=== PATIENT | male | born 1945 | race Caucasian/White ===

== ENCOUNTER 2019-08-02 21:39 | Emergency (ER) | payer MEDICARE ==
[2019-08-02 21:58] LABS: #Basophils 0.1 thou/uL (0.0-0.2); #Eosinphils 0.1 thou/uL (0.0-0.7); #Lymphocytes 1.5 thou/uL (1.20-3.40); #Monocytes 0.6 thou/uL (0.11-0.59); #Neutrophils 5.5 thou/uL (1.40-6.50); %Basophils 0.8 % (0.0-1.0); %Eosinophils 1.8 % (0.0-10.0); %Lymphocytes 18.8 % (21.0-51.0); %Monocytes 7.7 % (0.0-10.0); %Neutrophils 70.9 % (42.0-75.0); Hemoglobin 15.6 g/dL (14.0-18.0); Mean Corpuscular HGB CONC 30.5 g/dL (32.0-36.0); Mean Corpuscular Hemoglobin 28.5 pg (27.0-31.0); Mean Corpuscular Volume 93.3 fL (78.0-98.0); Mean Platelet Volume 8.4 fL (7.4-10.4); Platelet Count 213 thou/uL (130-400); RBC Distribution Width 12.8 % (11.5-14.5); Red Blood Cell (RBC) Count 5.48 mill/uL (4.70-6.10); White Blood Cell (WBC) Count 7.7 thou/uL (4.8-10.8)
[2019-08-02 22:21] LABS: ALT (SGPT) 19 U/L (8-55); AST (SGOT) 13 U/L (5-34); Albumin 3.5 g/dL (3.4-4.8); Alkaline Phosphatase 73 U/L (40-110); Anion Gap 13 mmol/L (10-20); BUN (Urea Nitrogen) 35 mg/dL (8.4-25.7); Bilirubin, Total 0.9 mg/dL (0.2-1.2); CK (CPK) 20 U/L (30-200); Calc. Creatinine Clearance 0 mL/min (70-130); Calcium 8.7 mg/dL (7.8-10.44); Carbon Dioxide 28 mmol/L (23-31); Chloride 103 mmol/L (98-107); Estimated GFR-MDRD 55; Globulin 2.9 g/dL (2.4-3.5); Glucose 157 mg/dL (83-110); Protein, Total 6.4 g/dL (5.8-8.1); Sodium 140 mmol/L (136-145)
[2019-08-02 22:42] LABS: CKMB 0.7 ng/mL (0-6.6)
--- NOTE | 2019-08-03 07:34 | RAD ---
SINGLE VIEW CHEST: Date: 08/02/2019 COMPARISON: None. HISTORY: Chest pain since this afternoon. FINDINGS: Single view of the chest shows a normal sized cardiomediastinal silhouette. Increased interstitial antonieta ng markings are present. There is obscurity of the medial aspect of the left hemidiaphragm which coul d represent atelectasis or infiltrate in the left lung base. Degenerative changes are seen in the spi ne. IMPRESSION: Left basilar atelectasis versus infiltrate. POS: [facility]
--- NOTE | 2019-08-05 14:28 | EKG ---
Test Reason : Blood Pressure : / mmHG Vent. Rate : 085 BPM Atrial Rate : 085 BPM P-R Int : 164 ms QRS Dur : 126 ms QT Int : 418 ms P-R-T Axes : 051 -85 086 degrees QTc Int : 497 ms Normal sinus rhythm with sinus arrhythmia Possible Left atrial enlargement Right bundle branch block Left anterior fascicular block Bifascicular block Possible Inferior infarct , age undetermined Anterior infarct , age undetermined T wave abnormality, consider lateral ischemia Abnormal ECG Confirmed by NUVIA DOVE DO ([id number]), department editor MINGO RANDOLPH ([id number]) on 08/05/2019 2:27:54 PM Referred By: Confirmed By:NUVIA DOVE DO
== END 2019-08-03 00:08 | disposition short-term general hospital (02) ==
LOC: ERS 21:39
DX: R07.2 Precordial pain (principal); I49.9 Cardiac arrhythmia, unspecified; R06.02 Shortness of breath; R05 Cough; I25.2 Old myocardial infarction; F17.210 Nicotine dependence, cigarettes, uncomplicated; Z79.82 Long term (current) use of aspirin; Z79.84 Long term (current) use of oral hypoglycemic drugs; Z79.899 Other long term (current) drug therapy
CPT/HCPCS: 36415; 71045; 80053; 82550; 82553; 83880; 84484; 85025; 93005

== ENCOUNTER 2019-09-17 04:24 | Inpatient (IN) | payer MEDICARE, OTHER ==
[2019-09-17] MEDS ORDERED: Nitroglycerin 0.4 MG TAB 1 EACH ONE (04:35)
[2019-09-17] MEDS ORDERED: Albuterol Sulfate 2.5 mg/3 ml Neb ONE ×2 (04:38→05:10)
[2019-09-17] MEDS ORDERED: Lorazepam 2 MG/ML VIAL ONE (04:42)
[2019-09-17] MEDS ORDERED: Furosemide 40 MG/4 ML VIAL ONE (04:50)
[2019-09-17 05:06] LABS: Actual Bicarbonate (HCO3a) 22.5 mEq/L (22-28); Analyzer IN Cardio ER; Base Excess (BEa) -5.3 mEq/L (-2.0 to +3.0); CO2 Tension 52.2 mmHg (35.0-45.0); Calcium, Ionized (arterial) 1.19 mmol/L (1.12-1.30); Carboxyhemoglobin (COHb) 0.7 gm% (0.0-3.0); Hemoglobin (Hb) 16.4 g/dL (14.0-18.0); O2 Tension (PaO2), arterial 104.7 mmHg (> 70.0); Potassium - ABG Lab 3.78 mmol/L (3.70-5.30)
[2019-09-17 05:07] LABS: Puncture Site RRA; pH, Arterial 7.25 (7.35-7.45)
[2019-09-17 05:08] LABS: #Basophils 0.1 thou/uL (0.0-0.2); #Eosinphils 0.4 thou/uL (0.0-0.7); #Lymphocytes 5.1 thou/uL (1.20-3.40); #Monocytes 0.7 thou/uL (0.11-0.59); #Neutrophils 6.4 thou/uL (1.40-6.50); %Eosinophils 2.9 % (0.0-10.0); %Lymphocytes 40.3 % (21.0-51.0); %Monocytes 5.3 % (0.0-10.0); %Neutrophils 50.4 % (42.0-75.0); Hemoglobin 16.1 g/dL (14.0-18.0); Mean Corpuscular HGB CONC 32.1 g/dL (32.0-36.0); Mean Corpuscular Hemoglobin 29.4 pg (27.0-31.0); Mean Corpuscular Volume 91.6 fL (78.0-98.0); Mean Platelet Volume 8.9 fL (7.4-10.4); Platelet Count 259 thou/uL (130-400); RBC Distribution Width 12.5 % (11.5-14.5); Red Blood Cell (RBC) Count 5.46 mill/uL (4.70-6.10); White Blood Cell (WBC) Count 12.7 thou/uL (4.8-10.8)
[2019-09-17 05:28] LABS: ALT (SGPT) 19 U/L (8-55); AST (SGOT) 17 U/L (5-34); Alkaline Phosphatase 86 U/L (40-110); Anion Gap 12 mmol/L (10-20); BUN (Urea Nitrogen) 20 mg/dL (8.4-25.7); Bilirubin, Total 0.8 mg/dL (0.2-1.2); Calc. Creatinine Clearance 0 mL/min (70-130); Calcium 9.1 mg/dL (7.8-10.44); Carbon Dioxide 26 mmol/L (23-31); Chloride 106 mmol/L (98-107); Estimated GFR-MDRD 73; Globulin 3.3 g/dL (2.4-3.5); Glucose 202 mg/dL (83-110); Potassium 4.3 mmol/L (3.5-5.1); Protein, Total 7.3 g/dL (5.8-8.1); Sodium 140 mmol/L (136-145)
[2019-09-17] MEDS ORDERED: Cefepime 2 GM VIAL ONE (05:31)
[2019-09-17] MEDS ORDERED: Vancomycin 1 GM/200 ML BAG ONE (05:31)
[2019-09-17 05:50] LABS: CKMB 1.7 ng/mL (0-6.6)
[2019-09-17] MEDS ORDERED: Aspirin Chewable 81 MG TAB ONE (05:57)
--- NOTE | 2019-09-17 06:04 | PDOC.FPRHP ---
- History of Present Illness Chief Complaint: SOB History of Present Illness: Patient is a 74 year old male with PMH CHF who presents to ED with worsening shortness of breath. He stated he had SOB for several days but it worsened today. He has been seeing a banquet pilot at [facility], recently underwent stent placement about 1 month ago and was placed on 2L of oxygen at home. Also noticed some increased swelling of his legs and was having to sit in his recliner to sleep. In ED his breathing worsened and was placed on bipap. History limited by this. Smokes 1/2ppd. Denies CP ED Course: In the ED, patient was noted to be in respiratory distress. Duoneb treatment was administered. The patient also recieved nitro 0.4mg, ASA 81mg and Lasix 40mg prior to admission. Cefepime 2g and vancomycin 1g were prescribed. - History PMHx: CHF, DM, PA (Apr 2019) PSHx: 4 vessel CABG, pt states stent placed about a month ago at [facility] FHx: Social: smokes 0.5 ppd. No alcohol or drug use. lives with Girlfriend - Review of Systems General: denies: fever/chills, night sweats Eyes: denies: eye pain, vision changes ENT: denies: nasal congestion, rhinorrhea Respiratory: reports: shortness of breath. denies: cough, congestion Cardiovascular: reports: edema, orthopnea. denies: chest pain, palpitation, paroxysmal nocturnal dyspnea Gastrointestinal: denies: nausea, vomiting Genitourinary: denies: dysuria, polyuria Skin: denies: rashes, lesions Musculoskeletal: denies: pain, tenderness Neurological: denies: numbness, syncope, weakness Psychological: denies: anxiety, depression - Vital signs BP: [134/96] HR: [102] RR: [25] Tmax: [96.7] Pox: [100]% on [bipap] Wt: [ 76.2kg] - Physical Exam Constitutional: awake, alert and oriented HEENT: normocephalic and atraumatic, PERRLA, no scleral icterus, grossly normal hearing Neck: supple, trachea midline Chest: no-tender to palpation, no lesions Heart: RRR, normal S1/S2, no murmurs/rubs/gallops, pulses present -Heart: 1+ pitting edema bilateral up to knee -Lungs: crackles heard bilaterally with some mild inspiratory wheezing Abdomen: soft, non-tender, bowel sounds present Musculoskeletal: normal structure, normal tone Neurological: no focal deficit, normal sensation Skin: no rash/lesions, good turgor Heme/Lymphatic: no unusual bruising or bleeding, no purpura Psychiatric: normal mood and affect, good judgment and insight FMR H&P: Results - Labs Result Diagrams: 09/17/19 04:45 09/17/19 04:45 Lab results: WBC 12.7 thou/uL (4.8-10.8) H 09/17/19 04:45 Hgb 16.1 g/dL (14.0-18.0) 09/17/19 04:45 Hct 50.0 % (42.0-52.0) 09/17/19 04:45 MCV 91.6 fL (78.0-98.0) 09/17/19 04:45 Plt Count 259 thou/uL (130-400) 09/17/19 04:45 Neutrophils % 50.4 % (42.0-75.0) 09/17/19 04:45 ABG pH 7.25 (7.35-7.45) L* 09/17/19 04:58 ABG pCO2 52.2 mmHg (35.0-45.0) H 09/17/19 04:58 ABG pO2 104.7 mmHg (> 70.0) H 09/17/19 04:58 Sodium 140 mmol/L (136-145) 09/17/19 04:45 Potassium 4.3 mmol/L (3.5-5.1) 09/17/19 04:45 Chloride 106 mmol/L (98-107) 09/17/19 04:45 Carbon Dioxide 26 mmol/L (23-31) 09/17/19 04:45 BUN 20 mg/dL (8.4-25.7) 09/17/19 04:45 Creatinine 0.99 mg/dL (0.7-1.3) 09/17/19 04:45 Glucose 202 mg/dL (83-110) H 09/17/19 04:45 Lactic Acid 2.9 mmol/L (0.5-2.2) H 09/17/19 04:50 Calcium 9.1 mg/dL (7.8-10.44) 09/17/19 04:45 Total Bilirubin 0.8 mg/dL (0.2-1.2) 09/17/19 04:45 AST 17 U/L (5-34) 09/17/19 04:45 ALT 19 U/L (8-55) 09/17/19 04:45 Alkaline Phosphatase 86 U/L (40-110) 09/17/19 04:45 CK-MB (CK-2) 1.7 ng/mL (0-6.6) 09/17/19 04:45 B-Natriuretic Peptide 1613.1 pg/mL (0-100) H 09/17/19 04:45 Serum Total Protein 7.3 g/dL (5.8-8.1) 09/17/19 04:45 Albumin 4.0 g/dL (3.4-4.8) 09/17/19 04:45 Laboratory Tests 09/17/19 09/17/19 09/17/19 04:45 04:45 04:50 Lactic Acid 2.9 H Troponin I 0.038 H B-Natriuretic Peptide 1613.1 H FMR H&P: A/P - Plan 1. Acute hypoxic respiratory failure 2/2 CHF exacerbation vs Pneumonia -on bipap, will give lasix, duonebs, strict I/Os - suspected CAP will start Rocephin, Azithro and Vanc 2. DM -sliding scale Code: Full PCP: [facility] call Prophylaxis: lovenox Dispo:admit to IMCU for respiratory support and evaluation, LOS >48hrs FMR H&P: Upper Level - Plan Date/Time: 09/17/19 0602 David Jefferson DO, have evaluated this patient and agree with findings/plan as outlined by internet application developer resident. Pertinent changes/additions are listed here. 74 yo m w sig heart dz hx presents for sob He reports that for the past couple of days he has become increasingly sob, chronically on 2L NC. He reports cough and fever. Denies chest pain, syncope, sick contacts, vomiting, diarrhea or dysuria. Taking his medications as prescribed and has all of his care at [facility]. PA in April with stent placement , dx of CHF in the past. Of note, pt is requiring bipap and dyspneic on exam so hx is limited. CXR reveals pulmonary vascular congestion, and right middle lobe opacity (official read pending), EKG revealing increased QRS complex voltage. On exam pt has increased work of breathing with crackles throughout lung hawkins , sinus tachy, no LE swelling. BNP 1613, WBC 12.7, troponin .038, and pH 7.25 w / increased A-a gradient on ABG. Give broad spectrum abx in ED, 1L of fluid, nitro, Lasix, nebs, asa. Acute hypoxic respiratory failure most likely 2/2 ADHF , consider pna as well. COVID was negative. Continue broad spectrum abx, bipap for now. Monitor strict IOs. Request records from [facility] as to the nature of this pts CHF. Further treatment based on clinical course/eval. Most likely this pt is suffering from ADHF, however if our interventions are not improving his status, consider underlying pna and dc bipap. Will continue nebs for probable hx of copd. Admit to imcu for respiratory failure, LOS>48hrs. Addendum - Attending - Attending Attestation Date/Time: 09/17/19 2051 I personally evaluated the patient and discussed the management with Dr. Willis/ Michael I agree with the History, Examination, Assessment and Plan documented above with any addition or exceptions noted below. see my dictation for details.
[2019-09-17] MEDS ORDERED: Ondansetron PF 4 MG/2 ML Vial IVP PRN (06:54)
[2019-09-17] MEDS ORDERED: Acetaminophen 650 MG Suppository PR PRN (06:54)
[2019-09-17] MEDS ORDERED: Acetaminophen 325 MG TAB PO PRN (06:54)
[2019-09-17] MEDS ORDERED: Ondansetron ODT 4 MG TAB PO PRN (06:54)
[2019-09-17] MEDS ORDERED: Dextrose 5% in Water 1,000 ML IV PRN (07:29)
[2019-09-17] MEDS ORDERED: Dextrose 50% Abboject 50 ML SYRINGE SLOW IVP PRN (07:29)
[2019-09-17] MEDS ORDERED: HumaLOG 300 UNITS/3 ML VIAL SC PRN (07:29)
[2019-09-17 08:18] LABS: Lactic Acid 2.3 mmol/L (0.5-2.2)
--- NOTE | 2019-09-17 08:19 | HP ---
TIME OF SERVICE: 0700 hours. CHIEF COMPLAINT: Shortness of breath. HISTORY OF PRESENT ILLNESS: I reviewed all documentations and discussed the care and management of this patient with Dr. Willis and Dr. Rodriguez. I agree with her history and physical, otherwise stated in the following attestation. In summary, Mr. Reid is a pleasant 74-year-old male with past medical history of heart failure of unknown specificity, diabetes, prior [place] and CAD, status post 4-vessel CABG. He also had a coronary artery stent placed about 1 month ago. He presents with a several-day history of progressively worsening shortness of breath. He called EMS. He is on 2 L of oxygen at baseline and upon arrival by EMS at his home, he was saturating in the mid 80s on 2 L. He responded to a non-rebreather therapy initially. The patient receives most of his care at [facility]. However, en route, he began to decompensate and was diverted to [facility]. In the ER, he reports shortness of breath and wheezing. Denies fevers, chills, cough, congestion, or chest pain. In the ER, he was started on BiPAP and received aspirin, vancomycin, cefepime, 1 L fluid bolus, Lasix IV push, lorazepam, albuterol nebs, DuoNebs, and nitroglycerin sublingual. Please see the resident note for past medical, social, surgical, and family history. PHYSICAL EXAMINATION: Focused physical examination, VITAL SIGNS: Blood pressure 125/85, pulse 109, respiratory rate 24, T-max 97.8, and pulse ox 99% on BiPAP. GENERAL: Alert and oriented to person, place, and time. Mild respiratory distress, but per reports, was improved. HEENT: Normocephalic, atraumatic. External ears and nose are grossly normal. CARDIOVASCULAR: Tachycardic, regular. No murmurs, rubs, or gallops. There is a sternotomy scar noted. PULMONARY: Clear to auscultation bilaterally, but the patient has poor air movement throughout. He has increased work of breathing, on BiPAP. He is speaking in 2- to 3-word sentences. EXTREMITIES: No pitting edema noted. PERTINENT LABORATORY FINDINGS: COVID-19 negative. Troponin 0.038. BNP 1613. Lactic acid 2.9. CMP was relatively unremarkable. Blood gas; pH 7.25, pCO2 of 52, PO2 of 104.7, and bicarb 22.58. White count 12.7. Chest x-ray was concerning for pulmonary vascular congestion and possible right middle lobe pneumonia. EKG showed sinus tachycardia without ST changes. Normal intervals. ASSESSMENT AND PLAN: Mr. Reid is a 74-year-old male who presented with a 2- to 3-day history of worsening shortness of breath. He was found to be hypoxic from his baseline at home and was started on BiPAP upon arrival to the ER. He appears to be responding to this and is much more comfortable. The patient agrees that he is breathing much easier now. 1. Acute hypoxic hypercapnic respiratory failure secondary to community-acquired lobar pneumonia versus congestive heart failure exacerbation versus chronic obstructive pulmonary disease exacerbation. We will continue IV antibiotics with vancomycin, Rocephin, and azithromycin. We will continue to treat with IV Lasix for possible congestive heart failure exacerbation. We will also treat him for chronic obstructive pulmonary disease exacerbation. We will schedule DuoNebs and IV steroids. Continue BiPAP in the IMCU. Pulmonology will evaluate the patient once he arrives to the floor. 2. Sepsis secondary to community-acquired pneumonia. Given the fact that he may also be in congestive heart failure exacerbation. We will hold off excessive fluid boluses at this time. Monitor his status. His blood pressure is holding steady at this time. He meets SIRS criteria with tachypnea, tachycardia, and elevated white count. We will check a procalcitonin level to further assess and evaluate. 3. Congestive heart failure, type unspecified. The patient has all his records at [facility]. We are attempting to obtain these at this time. Repeat echocardiogram. 4. See international account executive note for chronic medical problems. 5. Disposition: Inpatient IMCU greater than 2 midnights. Approximately 35 minutes of critical care time were spent on this patient by me. Job ID: [id number]
--- NOTE | 2019-09-17 08:22 | RAD ---
PORTABLE CHEST 1 VIEW: DATE: 09/17/2019. TIME: 4:15 AM. HISTORY: Shortness of breath. FINDINGS/IMPRESSION: Comparison is made with the exam of 08/02/2019. The heart is enlarged. There are patchy airspace opacities in the lower lung hawkins bilaterally, lef t greater than right. There is pulmonary vascular congestion. No pneumothoraces are seen. Small ef fusions cannot be excluded. POS: [facility]
[2019-09-17 08:35] LABS: Troponin I 0.051 ng/mL (< 0.028)
[2019-09-17 08:43] VITALS: BMI 23.4
[2019-09-17] MEDS: Enoxaparin Sodium 40 MG/0.4 ML SYRINGE SC SCH (11:28)
[2019-09-17] MEDS: Azithromycin 500 MG in Sodium Chloride 0.9% 250 ML 250 ML IVPB SCH (11:58)
[2019-09-17 14:47] LABS: Troponin I 0.042 ng/mL (< 0.028)
[2019-09-17] MEDS ORDERED: Sodium Chloride 0.9% 10 ML ONE (16:23)
[2019-09-17] MEDS: Vancomycin 1 GM in Premix Bag 1 BAG IVPB SCH (16:38)
[2019-09-18] MEDS: Vancomycin 1 GM in Premix Bag 1 BAG IVPB SCH (04:42)
[2019-09-18 04:56] LABS: #Eosinphils 0.2 thou/uL (0.0-0.7); #Lymphocytes 1.5 thou/uL (1.20-3.40); #Monocytes 0.5 thou/uL (0.11-0.59); #Neutrophils 4.8 thou/uL (1.40-6.50); %Basophils 0.3 % (0.0-1.0); %Eosinophils 2.9 % (0.0-10.0); %Lymphocytes 21.4 % (21.0-51.0); %Monocytes 7.5 % (0.0-10.0); %Neutrophils 67.8 % (42.0-75.0); Hemoglobin 14.3 g/dL (14.0-18.0); Mean Corpuscular HGB CONC 33.3 g/dL (32.0-36.0); Mean Corpuscular Volume 90.1 fL (78.0-98.0); Mean Platelet Volume 8.8 fL (7.4-10.4); Platelet Count 202 thou/uL (130-400); RBC Distribution Width 12.4 % (11.5-14.5); Red Blood Cell (RBC) Count 4.79 mill/uL (4.70-6.10)
[2019-09-18] MEDS ORDERED: Vancomycin HCl 1.25 GM in Sodium Chloride 0.9% 250 ML 250 ML IVPB SCH (05:00)
[2019-09-18 05:11] LABS: ALT (SGPT) 14 U/L (8-55); AST (SGOT) 13 U/L (5-34); Albumin 3.2 g/dL (3.4-4.8); Alkaline Phosphatase 67 U/L (40-110); Anion Gap 10 mmol/L (10-20); BUN (Urea Nitrogen) 21 mg/dL (8.4-25.7); Bilirubin, Total 0.7 mg/dL (0.2-1.2); Calc. Creatinine Clearance 76 mL/min (70-130); Calcium 8.3 mg/dL (7.8-10.44); Carbon Dioxide 27 mmol/L (23-31); Chloride 106 mmol/L (98-107); Estimated GFR-MDRD 85; Globulin 2.7 g/dL (2.4-3.5); Glucose 132 mg/dL (83-110); Potassium 3.5 mmol/L (3.5-5.1); Protein, Total 5.9 g/dL (5.8-8.1); Sodium 139 mmol/L (136-145)
--- NOTE | 2019-09-18 07:06 | PDOC.FM ---
- Subjective Subjective: Patient states his breathing feels a little better this morning. Did have increased O2 req overnight from 2 to 3L via N/C (normally on 2L O2 at home). Says breathing much improved after Duoneb treatment. He is currently receiving his ECHO. - Objective MAR Reviewed: Yes Vital Signs & Weight: Vital Signs (12 hours) Temp Pulse Resp BP Pulse Ox 09/18/19 05:42 18 97 09/18/19 04:40 97.9 F 92 16 108/66 95 09/17/19 20:29 97.9 F 98 16 96/51 L 96 Weight Weight 74.843 kg Most Recent Monitor Data Heart Rate from ECG 93 NIBP 98/65 NIBP BP-Mean 76 Respiration from ECG 22 SpO2 96 I&O: 09/17/19 09/18/19 09/19/19 06:59 06:59 06:59 Intake Total 1240 Output Total 1250 Balance -10 Result Diagrams: 09/18/19 04:02 09/18/19 04:02 Phys Exam - Physical Examination Constitutional: NAD HEENT: moist MMs, sclera anicteric Neck: no JVD, supple, full ROM Respiratory: no wheezing scattered crackles throughout Cardiovascular: RRR, no significant murmur Gastrointestinal: soft, non-tender Musculoskeletal: pulses present 1+ non pitting edema in BLE Neurological: normal sensation, moves all 4 limbs Psychiatric: normal affect, A&O x 3 Skin: no rash, normal turgor Dx/Plan (1) Acute hypoxemic respiratory failure Code(s): J96.01 - ACUTE RESPIRATORY FAILURE WITH HYPOXIA Status: Acute (2) Acute exacerbation of CHF (congestive heart failure) Code(s): I50.9 - HEART FAILURE, UNSPECIFIED Status: Acute Qualifiers: Heart failure type: unspecified Qualified Code(s): I50.9 - Heart failure, unspecified (3) COPD with acute exacerbation Code(s): J44.1 - CHRONIC OBSTRUCTIVE PULMONARY DISEASE W (ACUTE) EXACERBATION Status: Acute (4) Community acquired pneumonia Code(s): J18.9 - PNEUMONIA, UNSPECIFIED ORGANISM Status: Acute Qualifiers: Laterality: right Lung location: lower lobe of lung Qualified Code(s): J18.9 - Pneumonia, unspecified organism (5) CAD (coronary artery disease) Code(s): I25.10 - ATHSCL HEART DISEASE OF [place] CORONARY ARTERY W/O ANG PCTRS Status: Acute Qualifiers: Coronary Disease-Associated Artery/Lesion type: bypass graft [place] vs. transplanted heart: [place] heart Associated angina: with stable angina Qualified Code(s): I25.708 - Atherosclerosis of coronary artery bypass graft(s) , unspecified, with other forms of angina pectoris (6) Diabetes mellitus Code(s): E11.9 - TYPE 2 DIABETES MELLITUS WITHOUT COMPLICATIONS Status: Acute Qualifiers: Diabetes mellitus type: type 2 Diabetes mellitus shelter insulin use: without shelter use Diabetes mellitus complication status: with hyperglycemia Qualified Code(s): E11.65 - Type 2 diabetes mellitus with hyperglycemia - Plan Plan: Patient is a 74 yo male who prsents with SOB is admitted for acute hypoxic respiratory failure 2/2 multiple etiologies: Acute hypoxic respiratory failure 2/2 CHF exacerbation & CAP -on admission did require BIPAP, transitioned after 2 hours to N/C, currently requiring 3L -patient normally on 2L of O2 at home -CXR reveals pulmonary vascular congestion, and patchy opacity bilateral lower lobes (R>L) -BNP 1613 (up from BNP of 500 in July) -ABG: pH 7.25, PCO2 52.2, HCO3 22.5 -resume home Lasix, provide additional diuresis with IV Lasix -Duonebs -monitor strict I/Os -ECHO ordered & pending, pt reports hx of CHF in past -records request pending from [facility] Community Acquired Pneumonia -Rocephin, Azithro and Vanc -COVID negative COPD Exacerbation -plan as above -Prednisone 40 mg daily DM -sliding scale -home med rec pending CAD -[place] in April with stent placement, dx of CHF in the past. -EKG revealing increased QRS complex voltage, sinus tachycardia -Troponin 0.038 > 0.051 > 0.042 -home Nitro prn Diet: CC VTE: Lovenox Code: Full PCP: [facility] call Dispo: Stable, admit to telemetry for respiratory support and continued monitoring. Continue antibiotics and diuresis. Anticipate discharge in <48hrs. Addendum - Attending - Attending Attestation Date/Time: 09/18/19 7379 I personally evaluated the patient and discussed the management with Dr. Justice I agree with the History, Examination, Assessment and Plan documented above with any addition or exceptions noted below - Patient without complaints; states SOB is improved. Afebrile VSS. A/P: 1) HFrEF exacerbation - continue lasix; echo showes severely depressed EF; will d/w cardiology. Records form [facility] have not been received. 2) DM- stable; resume home meds. 3) COPD- continue nebs and steroids.
[2019-09-18] MEDS ORDERED: Furosemide 20 MG/2 ML VIAL SLOW IVP SCH (07:15)
[2019-09-18] MEDS ORDERED: Furosemide 40 MG/4 ML VIAL SLOW IVP SCH (07:25)
[2019-09-18] MEDS ORDERED: Furosemide 40 MG TAB PO SCH (07:30)
[2019-09-18] MEDS: predniSONE 20 MG TAB PO SCH (08:28)
[2019-09-18] MEDS: Azithromycin 500 MG in Sodium Chloride 0.9% 250 ML 250 ML IVPB SCH (08:29)
[2019-09-18] MEDS: Enoxaparin Sodium 40 MG/0.4 ML SYRINGE SC SCH (08:29)
[2019-09-18] MEDS: cefTRIAXone\\ROCEPHIN 2 GM in Sodium Chloride 0.9% 100 ML IVPB SCH (10:30)
[2019-09-18] MEDS: HumaLOG 300 UNITS/3 ML VIAL SC PRN ×2 (12:00→18:12)
[2019-09-18] MEDS ORDERED: Aspirin 81 mg Enteric Coated Tablet PO SCH (14:00)
[2019-09-18] MEDS ORDERED: Clopidogrel Bisulfate 75 MG TAB PO SCH (14:00)
[2019-09-18] MEDS ORDERED: Spironolactone 25 MG TAB PO SCH (14:45)
--- NOTE | 2019-09-18 15:18 | CON ---
DATE OF CONSULTATION: HISTORY OF PRESENT ILLNESS: The patient is a 74-year-old gentleman with a history of coronary artery disease and congestive heart failure, who presents with increasing dyspnea. The patient has a long history of coronary artery disease. He is status post coronary artery bypass surgery x4. The patient most recently underwent PTCA and stent placement at [facility] several months ago. The patient states he was subsequently admitted with congestive heart failure. He presents once again with increasing dyspnea. The patient denied having any chest discomfort. PAST MEDICAL HISTORY: 1. Coronary artery disease. 2. Cardiomyopathy. 3. Hypertension. 4. Dyslipidemia. 5. Diabetes mellitus. 6. COPD. PAST SURGICAL HISTORY: Coronary artery bypass graft surgery, also has a history of mediastinal wound exploration. SOCIAL HISTORY: Long history of tobacco abuse. FAMILY HISTORY: Family history of coronary artery disease. MEDICATIONS: 1. Aspirin 81 daily. 2. Plavix 75 daily. 3. Actos 30 daily. 4. Lisinopril 5 daily. 5. Metoprolol 50 b.i.d. 6. Lasix 20 daily. 7. Lipitor 40 at bedtime. 8. Chantix 1 mg p.o. b.i.d. REVIEW OF SYSTEMS: 10-point system otherwise unremarkable. PHYSICAL EXAMINATION: GENERAL: Elderly gentleman, in mild distress. VITAL SIGNS: Blood pressure was 93/54. NECK: Had no carotid bruits. LUNGS: Crackles in both bases. HEART: Regular rate and rhythm. Normal S1 and S2 with a 1/6 systolic murmur. ABDOMEN: Nondistended. EXTREMITIES: Show trace edema. Vascular radial pulse 2+. LABORATORY DATA: Sodium 139, potassium 3.5, chloride 106, bicarbonate 27, BUN 21, creatinine 0.87, glucose 132. White blood cell count is 7.0, hemoglobin 14.3, hematocrit 43.1, platelets are 202. EKG normal sinus rhythm, right bundle-branch block, Q wave suggestive of previous inferior infarct. IMPRESSION: 1. Congestive heart failure. 2. Severe ischemic cardiomyopathy. 3. History of coronary artery bypass surgery. 4. Percutaneous transluminal coronary angioplasty and stent placed. 5. Diabetes mellitus. 6. Dyslipidemia. 7. Tobacco abuse. This gentleman presents with congestive heart failure. The patient's blood pressure is low. I would continue the patient on his low-dose lisinopril. We will switch the patient from Toprol to Coreg. We will add Spironolactone. We will follow this patient with you through his hospitalization. Job ID: [id number] [facility] HOSPITALVinny
[2019-09-18] MEDS: Carvedilol 3.125 MG TAB PO SCH (16:17)
[2019-09-18] MEDS ORDERED: Non-Formulary Item 1 EACH (Varenicline Tartrate [Chantix] 1 MG) PO SCH (21:00)
[2019-09-18] MEDS ORDERED: Atorvastatin Calcium 40 MG TAB PO SCH (21:00)
[2019-09-18] MEDS ORDERED: Metoprolol Tartrate 50 MG TAB PO SCH (21:00)
[2019-09-18] MEDS: Lisinopril 2.5 MG TAB PO SCH (21:27)
[2019-09-18] MEDS: Varenicline Tartrate 0.5 MG TAB PO SCH (21:28)
--- NOTE | 2019-09-19 07:17 | PDOC.FM ---
- Subjective Subjective: Patient reports that he is feeling well this morning. His breathing has improved since yesterday. - Objective MAR Reviewed: Yes Vital Signs & Weight: Vital Signs (12 hours) Temp Pulse Resp BP Pulse Ox 09/19/19 04:03 93 L 09/19/19 04:00 98.4 F 88 18 100/58 L 96 09/18/19 21:27 98 09/18/19 19:58 97.8 F 98 16 113/56 L 93 L Weight Weight 73.936 kg Most Recent Monitor Data Heart Rate from ECG 93 NIBP 98/65 NIBP BP-Mean 76 Respiration from ECG 22 SpO2 96 I&O: 09/18/19 09/19/19 09/20/19 06:59 06:59 06:59 Intake Total 1240 720 Output Total 1250 725 Balance -10 -5 Result Diagrams: 09/18/19 04:02 09/18/19 04:02 Phys Exam - Physical Examination Constitutional: NAD HEENT: moist MMs, sclera anicteric Neck: no nodes, no JVD Respiratory: clear to auscultation bilateral decreased breath sounds in L Lung base Cardiovascular: RRR, no significant murmur Gastrointestinal: soft, non-tender, no distention, positive bowel sounds Musculoskeletal: no edema, pulses present Neurological: moves all 4 limbs Psychiatric: normal affect, A&O x 3 Skin: no rash, normal turgor Dx/Plan - Plan Plan: Patient is a 74 yo male who prsents with SOB is admitted for acute hypoxic respiratory failure 2/2 multiple etiologies: Acute hypoxic respiratory failure 2/2 CHF exacerbation & CAP -on admission did require BIPAP, transitioned after 2 hours to N/C, currently requiring 3L -patient normally on 2L of O2 at home -CXR reveals pulmonary vascular congestion, and patchy opacity bilateral lower lobes (R>L) -BNP 1613 (up from BNP of 500 in July) -ABG: pH 7.25, PCO2 52.2, HCO3 22.5 -resume home Lasix, provide additional diuresis with IV Lasix -Duonebs -monitor strict I/Os -ECHO ordered & pending, pt reports hx of CHF in past -records request pending from [facility] - Aldactone, lisinopril, Coreg Community Acquired Pneumonia -Rocephin, Azithro-consider switching to oral azithromycin and cefuroxime -COVID negative COPD Exacerbation -plan as above -Prednisone 40 mg daily DM -sliding scale -home med rec pending CAD -[place] in April with stent placement, dx of CHF in the past. -EKG revealing increased QRS complex voltage, sinus tachycardia -Troponin 0.038 > 0.051 > 0.042 -home Nitro prn Diet: CC VTE: Lovenox Code: Full PCP: [facility] call Dispo: Stable, admit to telemetry for respiratory support and continued monitoring. Continue antibiotics and diuresis. Anticipate discharge in <48hrs. Addendum - Attending - Attending Attestation Date/Time: 09/19/19 3467 I personally evaluated the patient and discussed the management with Dr. Brannon I agree with the History, Examination, Assessment and Plan documented above with any addition or exceptions noted below. Patient with significant ischemic cardiomyopathy with markedly reduced EF . Patient with Oxygen dependant COPD and states he wore life vest for 30 days. Appreciate Cardiology recommendations. This AM he appears improved since admission. Patient followed at [facility] s/p 4 v CABG and Stent placement on aldactone ACEI and Coreg.
[2019-09-19] MEDS ORDERED: Spironolactone 25 MG TAB PO SCH (08:00)
[2019-09-19] MEDS ORDERED: Aspirin Chewable 81 MG TAB PO SCH (09:00)
[2019-09-19] MEDS ORDERED: Clopidogrel Bisulfate 75 MG TAB PO SCH (09:00)
[2019-09-19] MEDS ORDERED: Furosemide 40 MG/4 ML VIAL SLOW IVP SCH (09:00)
[2019-09-19] MEDS: Carvedilol 3.125 MG TAB PO SCH ×2 (09:21→18:00)
[2019-09-19] MEDS: Lisinopril 2.5 MG TAB PO SCH ×2 (09:22→11:27)
[2019-09-19] MEDS: predniSONE 20 MG TAB PO SCH (09:22)
[2019-09-19] MEDS: Varenicline Tartrate 0.5 MG TAB PO SCH (09:25)
[2019-09-19] MEDS: Azithromycin 500 MG in Sodium Chloride 0.9% 250 ML 250 ML IVPB SCH (09:26)
[2019-09-19] MEDS: Enoxaparin Sodium 40 MG/0.4 ML SYRINGE SC SCH (09:26)
[2019-09-19] MEDS: cefTRIAXone\\ROCEPHIN 2 GM in Sodium Chloride 0.9% 100 ML IVPB SCH (11:03)
[2019-09-19] MEDS: HumaLOG 300 UNITS/3 ML VIAL SC PRN (11:33)
[2019-09-19 17:05] VITALS: BP 91/53; TEMP 97.8
--- NOTE | 2019-09-22 13:04 | DIS ---
DATE OF ADMISSION: 09/17/2019 DATE OF DISCHARGE: 09/19/2019 RESIDENT: Seth Brannon MD ADMITTING ATTENDING: Swapnil Ohara MD DISCHARGE ATTENDING: Juan Acuna MD CONSULTS: Cardiology. PROCEDURES: Echocardiogram showing ejection fraction of 15% to 20%, left atrial mild dilation, akinetic apex, moderate mitral regurgitation, mild tricuspid regurgitation, large pleural effusion, moderately increased left ventricular size, E/A flow reversal noted suggestive of diastolic dysfunction, aortic valve leaflets are somewhat thickened. Chest x-ray showing enlarged heart; patchy airspace opacities in the lower lung hawkins, left greater than right; and pulmonary vascular congestion. PRIMARY DIAGNOSIS: Acute hypoxic respiratory failure due to congestive heart failure exacerbation versus pneumonia. SECONDARY DIAGNOSES: 1. Diabetes mellitus, type 2. 2. Community-acquired pneumonia. 3. Chronic obstructive pulmonary disease exacerbation. 4. Coronary artery disease. DISCHARGE MEDICATIONS: 1. Aspirin 81 mg p.o. daily. 2. Atorvastatin 40 mg p.o. at bedtime. 3. Carvedilol 3.125 mg tab p.o. b.i.d. 4. Clopidogrel 75 mg p.o. daily. 5. Furosemide 20 mg p.o. daily. 6. Lisinopril 2.5 mg p.o. b.i.d. 7. Prednisone 40 mg p.o. daily for three days. 8. Spironolactone 25 mg p.o. daily. 9. Chantix (varenicline tartrate) 1 mg p.o. b.i.d. DISCONTINUED MEDICATIONS: None. HISTORY OF PRESENT ILLNESS/HOSPITAL COURSE: Patient is a 74-year-old male, with past medical history of CHF, who presented to the ED with worsening shortness of breath. He stated that he has had the shortness of breath for several days, but worsened today. He has also noticed increasing swelling of his legs and was having to sleep in his recliner. He endorses smoking one-half pack per day, but denies chest pain. He has been seeing a engineering program manager and has received all of his care at [facility]. He underwent a cardiac stent placement about one month ago and was placed on 2 L of oxygen at home since that procedure. In the ED, his breathing worsened and he was placed on BiPAP. The patient was noted to be in respiratory distress and was given DuoNeb treatment. Patient also received 0.4 mg of nitro, 81 mg of aspirin, and 40 mg of Lasix IV prior to admission. Cefepime 2 g, vancomycin 1 g were given. Over the course of hospital stay, the patient's breathing continued to improve, eventually weaning off BiPAP and back to his home 2 L of oxygen via nasal cannula. Since his records were with [facility], he received an echo showing the above findings. Patient was swabbed for COVID and was negative. His troponins were elevated, but stable with the trend showing 0.38 to 0.51 to 0.42. On day 3 of hospital stay, patient reported being back to baseline and Cardiology recommended that the patient be sent home on a LifeVest. Patient was discharged on a LifeVest with home medications as listed above. Patient's labs were stable throughout the hospital admission. DISPOSITION: Stable. DISCHARGE INSTRUCTIONS: Location: Home. Diet: Heart healthy, low sodium. Activity: As tolerated. Followup: Patient should follow up with his normal engineering program manager within 1 week. Patient should also follow up with his PCP within 10 days. Job ID: [id number]
== END 2019-09-19 18:19 | disposition home or self-care (01) | DRG 871 ==
LOC: ERS 04:24 → IMCU/EMU 04:55 → 2NO 07:11
PROVIDERS: ADMIT Family Medicine; ATTEND Family Medicine
PROC: 5A1935Z Respiratory Ventilation, Less than 24 Consecutive Hours (ICD-10-PCS; principal; 2019-09-17)
DX: A41.9 Sepsis, unspecified organism (principal); J18.9 Pneumonia, unspecified organism; J96.01 Acute respiratory failure with hypoxia; I50.23 Acute on chronic systolic (congestive) heart failure; J44.1 Chronic obstructive pulmonary disease with (acute) exacerbation; J44.0 Chronic obstructive pulmonary disease with (acute) lower respiratory infection; Z20.828 Contact with and (suspected) exposure to other viral communicable diseases; F17.210 Nicotine dependence, cigarettes, uncomplicated; I25.10 Atherosclerotic heart disease of native coronary artery without angina pectoris; E11.22 Type 2 diabetes mellitus with diabetic chronic kidney disease; I25.5 Ischemic cardiomyopathy; E78.5 Hyperlipidemia, unspecified; I11.0 Hypertensive heart disease with heart failure; Z79.899 Other long term (current) drug therapy; I25.2 Old myocardial infarction; Z79.82 Long term (current) use of aspirin; Z95.1 Presence of aortocoronary bypass graft; Z95.5 Presence of coronary angioplasty implant and graft; Z79.02 Long term (current) use of antithrombotics/antiplatelets; Z79.84 Long term (current) use of oral hypoglycemic drugs
CPT/HCPCS: 36415; 36416; 71045; 80053; 82553; 82805; 83605; 83880; 84145; 84443; 84484; 85025; 87040; 93005; 93306; 94640; 94660; 94760; 96361; 96365; 96375; 99292; J0456; J0692; J0696; J1650; J1940; J2060; J3370; J3490; J7050; J7512; J7611; J7620; U0002